=== PATIENT | male | born 1960 | race Caucasian/White ===

== ENCOUNTER 2024-01-08 19:06 | Emergency (ER) | payer BC, SELFPAY ==
[2024-01-08 19:12] VITALS: BP 196/124
--- NOTE | 2024-01-08 20:44 | ED.SKININJ ---
HPI-Injury
General
Chief Complaint: Fall
Source: patient
Exam Limitations: none
Time Seen by Provider: 01/08/24 19:43
History of Present Illness-Injury
Is this injury a work related problem?: No
Is pt an associate of [facility]/[place]?: No
Initial Injury comments:
This is a 63 year old male that comes in with c/o laceration to the left fifth finger. States that he was up on the garage ladder that is a pull down ladder and he was reaching on the floor of the garage ceiling and the ladder broke. States that
he grabbed to brake his fall with the left hand and cut the left 5th finger. States that he did land on his feet and denies any other injury. States that he did not hit his head or have any LOC. Denies any fever, chills, chest pain, SOB, abd pain,
nausea, vomiting, diarrhea, headache, dizziness.
Past History
Past History
ED Past Medical History: HTN, Hypercholesterolemia, Psychiatric (Depression) and Other (Pericarditis, renal calculus, )
ED Past Surgical History: Orthopedic (right and left hip replacement)
Social History
Tobacco: Non-smoker
Alcohol: Occasional
Personal:
Living: with family
Employment: Employed (Works in [employer] business)
Family History
Family History: Other (maternal grandfather with PA, unknown age.); Negative Early CAD or CAD
Review of Systems
Review of Systems
All Other Systems: ROS reviewed and negative except as documented in HPI and ROS
Constitutional: Reports no symptoms; Denies fever or chills
EENT: Reports no symptoms
Respiratory: Reports no symptoms; Denies cough or trouble breathing
Cardiac: Reports no symptoms; Denies chest pain
ABD/GI: Reports no symptoms; Denies abdominal pain, nausea, vomiting or diarrhea
: Reports no symptoms
Musculoskeletal: Reports no symptoms
Skin: Reports other (Laceration to the left 5th finger. )
Neurological: Reports no symptoms; Denies dizzy or headache
Psychiatric: Reports no symptoms
Skin Exam
Laceration
Left Distal Fifth Finger:
Length in cm: 3
Orientation: C shaped
Type of Laceration: simple
Any active bleeding?: low grade venous oozing
Distal skin color and temperature: normal-warm & good color
Normal distal neurovascular exam: Yes
Range of motion: full
Phy Exam
General Physical Exam
General Presentation: well appearing and no apparent distress
General age: appears stated age
General Skin: warm and dry
General Habitus: normal
General Mental: alert
General Hydration: appears well hydrated
ENT Exam
ENT Exam: TM's normal, pharynx normal and neck supple
Eye Exam
Eye Exam: EOMI
Cardiovascular Exam
Cardiovascular Exam: regular rate/rhythm, no edema, no murmur and normal peripheral pulses
Pulmonary Exam
Pulmonary Exam: lungs clear, no respiratory distress, no rales, chest non tender, no crackles, no rhonchi, no wheezing and no cough
Gastrointestinal Exam
Gastrointestinal Exam: normal bowel sounds, non tender, soft, no organomegaly, no pulsatile mass and non distended
Musculoskeletal Exam
Musculoskeletal Exam: full ROM
Skin Exam
Skin Exam: normal color, warm/dry, no rash, no petechia and laceration (left distal fifth finger on the khan aspect )
Psychiatric Exam
Psychiatric Exam: normal mood/affect
Course
Orders/Labs/Results
Orders:
Orders
01/08/24 20:19
Finger(s)/Thumb 2 View Lt [CR Finger(s)/thumb Min 2 Vw Lt] Urgent
Comment:
Reason For Exam: Cut, injury
Indicate Which Finger:: Little Finger
Vital Signs
Initial and Last Documented VS:
Initial Vital Signs
Temp Pulse Resp BP Pulse Ox
97.8 F 94 22 196/124 96
01/08/24 19:12 01/08/24 19:12 01/08/24 19:12 01/08/24 19:12 01/08/24 19:12
Last Documented Vital Signs
Temp Pulse Resp BP Pulse Ox
97.8 F 94 22 196/124 96
01/08/24 19:12 01/08/24 19:12 01/08/24 19:12 01/08/24 19:12 01/08/24 19:12
Procedures
Laceration Closure
Left Distal Fifth Finger:
Status of Wound: clean
Size of Wound in cm: 3
Description of Wound Edges: sharp
Preparation: cleaned with saline
Anesthesia: 1% Lidocaine
Revision/Debridement: routine- no revision
Wound exploration: explored to base- no FB
Type of Closure: single layer closure
Skin Closure Material: 4-0 prolene
Number of sutures: 8
MDM/Problems Addressed
Differential Diagnosis Includes:
laceration finger
MDM/Problems Addressed:
This is a 63 year old male that comes with c/o laceration to the left fifth finger. states that his pull down garage ladder broke and he caught himself with his hand and cut the left fifth finger.
will X-ray and suture. Patient has had his had his Tetanus injection.
Questioned patient about his BP. States that he has BP medication at home and he does't take this. states that he see's a raw stock drier tender here and she will make an appointment for him in the morning. Patient will take his medication when he gets
home as he doesn't remember what it was. Will discharge home.
Chronic conditions affecting care:
NA
Acute Exacerbation and/or Progression of Chronic Illness:
NA
*Radiology
Radiology exam reviewed: preliminary read by ED provider (Fifth finger- negative for fracture)
*Pulse Oximetry
Patient hypoxic: no
*EKG
Interpreted by ED Provider?: NA
Rate: EKG- N/A
*Syrup Mixer Interpretation
Rate: Syrup Mixer- N/A
*Critical Care Note
Total Time (30-74mins, 75-104mins- exclusive of procedures): Not Applicable
ED Attending Note
-
Portions of this chart may have been created with voice recognition software.� Occasional wrong word or��sound alike� substitutions may have occurred due to the inherent limitations of voice recognition software.
Discharge Plan
Departure
Patient Disposition: Home (Routine Discharge)
Date of Disposition: 01/08/24
Time of Disposition: 21:13
Patient with high blood pressure during this ER visit?: Yes
Condition: Good
Covid-19: Not Applicable
Discharge Problem:
Laceration of finger of left hand
Instructions: Laceration Repair With Stitches (DC), BLOOD PRESSURE
Prescriptions:
No Action
lisinopril 5 MG tablet
5 mg PO DAILY Qty: 30 11RF
colchicine 0.6 MG tablet
0.6 mg PO BID Qty: 28 0RF
ibuprofen 200 MG tablet
600 mg PO TID Qty: 21 0RF
Rx Instructions:
Take ibuprofen 600 mg (three 200 mg tablets) three times a day with food for 7 days then stop
esomeprazole magnesium [Nexium] 20 MG capsule,delayed release(DR/EC)
20 mg PO DAILY Qty: 7 0RF
Rx Instructions:
Take Nexium (or other stomach acid protecting medicine) for 7 days then stop
Referrals:
NONE,* [Family Provider] -
Activity Restrictions/Additional Instructions:
As discussed, no fracture are noted on the left fifth finger. You have a laceration of the finger. Please keep this dry for the next 24 hours. After this you may get the finger wet but do not submerge in water. Try and leave the steri strips in
place. Please keep this covered when working to keep clean. Follow up with the family doctor in 2-3 days for wound check and in 10-14 days to have your sutures removed. IF YOU HAVE ANY REDNESS OR SWELLING OR YOU HAVE ANY OTHER CONCERNS PLEASE
RETURN TO THE EMERGENCY ROOM.
Interventions
Interventions:
*Risk Screen - Suicide Last Done: 01/08/24 19:12
*Neglect/Abuse Screening Last Done: 01/08/24 19:12
ED- Fall Risk Assessment Last Done: 01/08/24 20:03
ED- Neurological Assessment Last Done: 01/08/24 20:03
ED-Skin Assessment Last Done: 01/08/24 20:03
Discharge Date and Time
Print Language: ROMANSH
[2024-01-08 21:16] VITALS: BP 170/100
[2024-01-08] MEDS: TYLENOL 1000 MG PO (21:25)
== END 2024-01-08 21:34 | disposition home or self-care (01) ==
LOC: EMR 19:06
PROVIDERS: EMERGENCY PHYSICIAN Student in an Organized Health Care Education/Training Program
DX: S61.217A Laceration without foreign body of left little finger without damage to nail, initial encounter (principal); W11.XXXA Fall on and from ladder, initial encounter; Y93.89 Activity, other specified; I10 Essential (primary) hypertension; E78.00 Pure hypercholesterolemia, unspecified; F32.A Depression, unspecified; Z87.442 Personal history of urinary calculi; Z96.642 Presence of left artificial hip joint
CPT/HCPCS: 99283; 12002; 73140